=== PATIENT | female | born 1975 | race Caucasian/White ===

== ENCOUNTER 2017-07-04 22:19 | Emergency (ER) | payer BC ==
[~2017-07-04] VITALS: Ht 162.6 cm; Wt 76.2 kg
[2017-07-04] MEDS ORDERED: AMOX1TAB61 PO (22:55)
--- NOTE | 2017-07-04 22:55 | PHYS DOC ---
Past History Past Medical History: No Pertinent History Past Surgical History: No Surgical History Alcohol Use: Occasionally Drug Use: None Adult General Chief Complaint Chief Complaint: ANIMAL BITE HPI HPI Patient is a 42-year-old female who presents here today secondary to a provoked Bite of an unknown Several hours prior to arrival. Reports she was petting the cat. He reports Was a stray that was dropped off in the neighborhood recently. 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 She reports it Was for a friendly and playful however upon petting the cat Did bite her. She reports she does not have access confining the cat. Review of systems: Constitutional: Denies fever or chills Eyes: Denies change in visual acuity, redness, or eye pain HENT: Denies nasal congestion or sore throat Respiratory: Denies cough or shortness of breath All other systems were reviewed and found to be within normal limits, except as documented in this note. Physical exam: Constitutional: Well developed, well nourished, no acute distress, non-toxic appearance. HENT: Normocephalic, atraumatic, bilateral external ears normal, nose normal. Eyes: PERRLA, EOMI, conjunctiva normal, no discharge. Neck: Normal range of motion, no tenderness, supple, no stridor. Cardiovascular: Heart rate regular rhythm, Lungs & Thorax: Bilateral breath sounds clear to auscultation Abdomen: No abdominal distention. Skin: Warm, dry, no erythema, no rash. Back: Normal spinal curvature Extremities: No tenderness, no cyanosis, no clubbing, ROM intact, no edema. Neurologic: Alert and oriented X 3, normal motor function, normal sensory function, no focal deficits noted. Psychologic: Affect normal, judgement normal, mood normal. Superficial cuts to the thenar eminence of her right hand. Does not appear to be deep. No evidence of cellulitis neurovascularly intact. Patient's ER physical exam was most remarkable: Assessment and plan: 1. Patient will receive tetanus shot as her tetanus status not up-to-date. Patient will receive rabies vaccine at days #0 #3, #7, and the 14. She'll receive 20 international units of immunoglobulin per kilogram. Patient be started on Augmentin twice a day. Current Medications Current Medications Current Medications Medications (Trade) Dose Ordered Sig/[place]rence Start Time Stop Time Status Last Admin Dose Admin Amoxicillin/ Clavulanate Potassium (Augmentin 875/ 125mg) 1 tab 1X ONCE 07/04/17 22:45 07/04/17 22:46 UNV Diphtheria/ Tetanus/Acell Pertussis (Boostrix) 0.5 ml ONCE ONCE 07/04/17 22:45 07/04/17 22:46 UNV Rabies Immune Globulin (Imogam Rabies) 10 ml ONCE ONCE 07/04/17 22:45 07/04/17 22:46 UNV Rabies Vaccine Human Diploid Cell (Imovax Rabies 2.5 Unit / ml) 1 ml ONCE ONCE 07/04/17 22:45 07/04/17 22:46 UNV Allergies Allergies Allergies Coded Allergies Type Severity Reaction Last Updated Verified No Known Drug Allergies 07/04/17 No Current Patient Data Vital Signs Vital Signs Date Time Temp Pulse Resp B/P (MAP) Pulse Ox O2 Delivery O2 Flow Rate FiO2 07/04/17 22:32 98.4 90 18 100 Room Air EKG EKG [] Radiology/Procedures Radiology/Procedures [] Course & Med Decision Making Course & Med Decision Making Pertinent Labs and Imaging studies reviewed. (See chart for details) [] Dragon Disclaimer Dragon Disclaimer This electronic medical record was generated, in whole or in part, using a voice recognition dictation system. Departure Departure: Impression: Primary Impression: Bite from cat Disposition: 01 HOME, SELF-CARE Condition: IMPROVED Patient Instructions: Rabies, VIS, Rabies - CDC Additional Instructions: you will need to return to the ER on days #3, #7, #14 to get your full rabies vaccination completed. Scripts Amoxicillin/Potassium Clav (AUGMENTIN 875-125 TABLET) 1 Each Tablet 1 TAB PO BID, #14 TAB Prov: IRASEMA CHILEL MD 07/04/17 IRASEMA CHILEL MD Jul 04, 2017 22:55
[2017-07-04] MEDS ORDERED: DIPHTH,PERTUSS(ACELL),TET TOX 0.5 ML DISP.SYRIN. VAX IM ONE (23:15)
[2017-07-04] MEDS ORDERED: RABIES VIRUS VACC PF 2.5 UNIT / 1 ML VIAL. VAX IM ONE (23:15)
[2017-07-04] MEDS ORDERED: AMOXICILLIN/K CLAV 875/125MG TABLET. PO ONE (23:15)
[2017-07-04] MEDS ORDERED: RABIES IMMUNE GLOBULIN PF 150 UNIT/ML 10ML VIAL. VAX IM ONE (23:30)
[2017-07-04 23:55] VITALS: BP 152/81
== END 2017-07-04 23:58 | disposition home or self-care (01) ==
LOC: ER 22:19
DX: S60.571A Other superficial bite of hand of right hand, initial encounter (principal); W55.01XA Bitten by cat, initial encounter; Y93.89 Activity, other specified; Y99.8 Other external cause status; Y92.89 Other specified places as the place of occurrence of the external cause
CPT/HCPCS: 90376; 90471; 90472; 90675; 90715; 96372; 99284-25

== ENCOUNTER → 2018-05-16 | Outpatient (CLI) | payer BC ==
[2017-07-18 15:49] VITALS: BP 134/88
[~2018-05-16] MED LIST: AMOX1TAB61 PO
[2018-05-16 09:45] LABS: BASO % 1 % (0-3); EOS # 0.1 x10^3/uL (0.0-0.7); EOS % 1 % (0-3); HEMATOCRIT 40.4 % (36.0-47.0); HEMOGLOBIN 13.3 g/dL (12.0-15.5); LYMPH % 30 % (24-48); MEAN CORPUSCULAR HEMOGLOBIN 29 pg (25-35); MEAN CORPUSCULAR HGB CONC 33 g/dL (31-37); MEAN CORPUSCULAR VOLUME 87 fL (79-100); MONO # 0.3 x10^3/uL (0.0-1.1); MONO % 5 % (0-9); NEUT # 4.3 x10^3uL (1.8-7.7); NEUT % 64 % (31-73); PLATELET COUNT 244 x10^3/uL (140-400); RED BLOOD COUNT 4.65 x10^6/uL (3.50-5.40); RED CELL DISTRIBUTION WIDTH 13.9 % (11.5-14.5); WHITE BLOOD COUNT 6.7 x10^3/uL (4.0-11.0)
--- NOTE | 2018-05-16 13:11 | RAD ---
US PELVIS W/TV: 05/16/2018 12:00 AM INDICATION: 43 years old Female. Dysmenorrhea. COMPARISON: None available. TECHNIQUE: Transabdominal and transvaginal sonographic evaluation of the pelvis was performed. FINDINGS: Grayscale, color Doppler and spectral waveform analysis were utilized. UTERUS: Size: 11.5 x 1.1 x 5.0 cm. Masses: There is a anterior lower uterine body fibroid measuring 2.5 x 2.4 x 1.9 cm which is predominantly intramural minimal subendometrial component. Endometrium: 8 mm. RIGHT OVARY: 6.1 x 3.4 x 4.1 cm. There is a simple cyst measuring 3.8 x 3.8 x 3.8 cm cyst just above a dominant follicle. LEFT OVARY: 3.2 x 2.8 x 2.5 cm. Follicular changes are present. Arterial and venous waveform are identified bilaterally at the time of imaging. FREE FLUID: None. URINARY BLADDER: Unremarkable. IMPRESSION: 1. Anterior uterine fibroid which is predominantly intramural with minimal subendometrial component measuring 2.5 x 2.4 x 1.9 cm. 2. Dominant follicle in the right ovary measures 3.8 cm. Perfusion is noted bilaterally at the time of imaging. Electronically signed by: Meagan Mace MD (05/16/2018 1:06 PM) [id number]
[2018-05-16 19:09] LABS: ESTRADIOL LEVEL 127.3 pg/mL (.); FSH 2.6 mIU/mL (.); LUTEINIZING HORMONE 3.1 mIU/mL (.)
== END | disposition home or self-care (01) ==
LOC: US 08:51
PROVIDERS: ATTEND Physician Assistant
DX: Z01.419 Encounter for gynecological examination (general) (routine) without abnormal findings (principal); D25.1 Intramural leiomyoma of uterus; N83.292 Other ovarian cyst, left side
CPT/HCPCS: 36415; 76830; 76856; 82670; 83001; 83002; 85025